=== PATIENT | male | born 1995 | race African-American/Black ===

== ENCOUNTER 2019-08-18 08:42 | Emergency (ER) | payer SELFPAY ==
[~2019-08-18] VITALS: Ht 170.2 cm; Wt 70.0 kg
[2019-08-18 12:52] LABS: BASOPHILS % 0.1 % (0.0-2.0); EOSINOPHILS % 0.1 % (0.0-5.0); HEMATOCRIT. 46.8 % (42.0-52.0); HEMOGLOBIN. 15.9 g/dL (14.0-18.0); LYMPHOCYTES % 8.7 % (20.0-50.0); MEAN CORPUSCULAR HEMOGLOBIN 27.9 pg (28.0-32.0); MEAN CORPUSCULAR VOLUME 82.1 fL (80.0-94.0); MEAN PLATELET VOLUME 7.2 fl (7.4-10.4); MONOCYTES % 7.8 % (2.0-8.0); NEUTROPHILS % 83.3 % (40.0-76.0); PLATELET 322 x1000/uL (130-400); RED CELL DISTRIBUTION WIDTH 13.1 % (11.6-14.6)
[2019-08-18 12:56] LABS: CHLORIDE 100 mEq/L (98-107)
[2019-08-18 13:00] LABS: ETHANOL BLOOD < 10 mg/dL
[2019-08-18] MEDS: OLANZAPINE 10MG TABLET PO SCH ×2 (15:06→17:00)
[2019-08-18 16:26] LABS: CLARITY URINE CLEAR (CLEAR); COLOR URINE YELLOW (YELLOW); KETONES URINE TRACE (NEGATIVE); LEUKOCYTE ESTERASE URINE NEGATIVE (NEGATIVE); NITRITE URINE NEGATIVE (NEGATIVE); OCCULT BLOOD URINE 1+ (NEGATIVE); PROTEIN URINE NEGATIVE (NEGATIVE); SPECIFIC GRAVITY URINE 1.022 (1.005-1.030)
[2019-08-18 20:27] LABS: CANNABINOID URINE SCREEN NEGATIVE (NEGATIVE); PHENCYCLIDINE URINE SCREEN PRESUMTIVE POSITIVE (NEGATIVE)
[2019-08-18 20:28] LABS: *AMPHETAMINES SCREEN URINE NEGATIVE (NEGATIVE); *BARBITURATES SCREEN URINE NEGATIVE (NEGATIVE); *BENZODIAZEPINES SCREEN URINE NEGATIVE (NEGATIVE); *COCAINE SCREEN URINE NEGATIVE (NEGATIVE); METHADONE URINE SCREEN NEGATIVE (NEGATIVE); OPIATES URINE SCREEN NEGATIVE (NEGATIVE)
[2019-08-19] MEDS: OLANZAPINE 10MG TABLET PO SCH (14:53)
[2019-08-19 18:00] VITALS: BP 115/72
== END 2019-08-19 19:30 | disposition home or self-care (01) ==
LOC: ER 08:42
DX: F29 Unspecified psychosis not due to a substance or known physiological condition (principal); R45.6 Violent behavior; Z73.6 Limitation of activities due to disability; J45.909 Unspecified asthma, uncomplicated; Z59.0 Homelessness
CPT/HCPCS: 36415; 80305; 80320; 81003; 99284; G0480

== ENCOUNTER 2023-06-19 17:11 | Emergency (ER) | payer MEDICAID ==
[~2023-06-19] VITALS: Ht 170.2 cm; Wt 59.0 kg
[2023-06-19 17:48] VITALS: O2SAT 99
[2023-06-19 20:12] LABS: CLARITY URINE CLEAR (CLEAR); COLOR URINE YELLOW (YELLOW); GLUCOSE URINE NEGATIVE (NEGATIVE); KETONES URINE 2+ (NEGATIVE); LEUKOCYTE ESTERASE URINE NEGATIVE (NEGATIVE); NITRITE URINE NEGATIVE (NEGATIVE); OCCULT BLOOD URINE NEGATIVE (NEGATIVE); PH URINE 6.5 (4.5-8.0); PROTEIN URINE NEGATIVE (NEGATIVE)
[2023-06-19 20:38] LABS: *AMPHETAMINES SCREEN URINE PRESUMTIVE POSITIVE (NEGATIVE); *BARBITURATES SCREEN URINE NEGATIVE (NEGATIVE); *BENZODIAZEPINES SCREEN URINE NEGATIVE (NEGATIVE); *COCAINE SCREEN URINE NEGATIVE (NEGATIVE); CANNABINOID URINE SCREEN PRESUMTIVE POSITIVE (NEGATIVE); ECSTASY MDMA SCREEN URINE NEGATIVE (NEGATIVE); OPIATES URINE SCREEN NEGATIVE (NEGATIVE); PHENCYCLIDINE URINE SCREEN NEGATIVE (NEGATIVE)
[2023-06-19 20:41] LABS: BASOPHILS % 0.5 % (0.0-2.0); EOSINOPHILS % 1.8 % (0.0-5.0); HEMOGLOBIN. 13.7 g/dL (14.0-18.0); LYMPHOCYTES % 30.5 % (20.0-50.0); MEAN CORPUSCULAR HEMOGLOBIN 28.3 pg (28.0-32.0); MEAN CORPUSCULAR HGB CONC 34.3 g/dL (31.0-37.0); MEAN CORPUSCULAR VOLUME 82.3 fL (80.0-94.0); MEAN PLATELET VOLUME 6.9 fl (7.4-10.4); MONOCYTES % 8.9 % (2.0-8.0); NEUTROPHILS % 58.3 % (40.0-76.0); PLATELET 275 x1000/uL (130-400); RED BLOOD CELL COUNT 4.85 mill/uL (4.7-6.1); RED CELL DISTRIBUTION WIDTH 13.3 % (11.6-14.6); WHITE BLOOD COUNT 6.8 x1000/uL (4.5-11.0)
[2023-06-19 20:49] LABS: CHLORIDE 105 mEq/L (98-107); INDEX HEMOLYSI 1 (1-3); INDEX ICTERIC 1 (1-4); INDEX LIPEMIC 1 (1-3); POTASSIUM 3.4 mEq/L (3.5-5.1); SODIUM 138 mEq/L (136-145)
[2023-06-19 20:56] LABS: ACETAMINOPHEN <2 ug/mL ug/mL (10-30); ALANINE AMINOTRANSFERASE 38 IU/L (13-61); ALBUMIN 3.9 g/dL (3.4-5.0); ASPARTATE AMINOTRANSFERASE 36 IU/L (15-37); BILIRUBIN TOTAL 1.1 mg/dL (0.1-1.0); CALCIUM 8.7 mg/dL (8.5-10.1); CARBON DIOXIDE 28 mEq/L (21-32); CREATININE 0.9 mg/dL (0.6-1.3); ETHANOL BLOOD < 10 mg/dL (<10); GLUCOSE 103 mg/dL (70-105); PROTEIN TOTAL 6.8 g/dL (6.0-8.3); UREA NITROGEN BLOOD 12 mg/dL (7-21)
[2023-06-20] MEDS ORDERED: POTASSIUM CHLORIDE 20MEQ TABLET SR PO ONE (00:15)
[2023-06-20] MEDS ORDERED: POTASSIUM CHLORIDE 20MEQ TABLET SR PO NR (13:30)
[2023-06-20] MEDS: OLANZAPINE 5MG TABLET ODT PO SCH ×2 (14:03→18:00)
[2023-06-21] MEDS: OLANZAPINE 5MG TABLET ODT PO SCH ×2 (09:58→18:33)
[2023-06-21 18:33] VITALS: BP 125/63; PULSE 88; RESP 16; TEMP 98.5
[2023-06-21] MEDS ORDERED: OLAN5TAB3 MT (19:14)
== END 2023-06-21 19:40 | disposition home or self-care (01) ==
LOC: ER 17:11
DX: R45.851 Suicidal ideations (principal); R07.89 Other chest pain; Z20.822 Contact with and (suspected) exposure to COVID-19
CPT/HCPCS: 80053; 80305; 81003; 80307; 80329; 80320; 85025; 36415; 71045; 93005; 99285; 87426; C9803; G0480

== ENCOUNTER 2023-06-26 09:43 | Emergency (ER) | payer MEDICAID ==
[~2023-06-26] VITALS: Ht 170.2 cm; Wt 64.0 kg
[~2023-06-26 09:43] MED LIST: OLAN5TAB3 MT
[2023-06-26 10:07] VITALS: BP 135/82; PULSE 102; RESP 18; TEMP 98.2; O2SAT 98
[2023-06-26] MEDS ORDERED: BACITRACIN ZINC OINT UDPKT TOP ONE (14:30)
[2023-06-26] MEDS ORDERED: OLANZAPINE 5MG TABLET PO SCH (15:00)
== END 2023-06-26 16:57 | disposition left against medical advice (07) ==
LOC: ER 10:28
DX: R44.0 Auditory hallucinations (principal)
CPT/HCPCS: 99281

== ENCOUNTER 2023-08-09 12:14 | Emergency (ER) | payer MEDICAID ==
[~2023-08-09] VITALS: Ht 172.7 cm; Wt 59.0 kg
[2023-08-09 12:19] VITALS: BP 117/75; PULSE 90; RESP 16; TEMP 98.2; O2SAT 98
[2023-08-09] MEDS ORDERED: SULF1TAB48 MT (14:12)
[2023-08-09] MEDS ORDERED: HIBIL TP (14:12)
[2023-08-09 14:38] LABS: BASOPHILS % 0.3 % (0.0-2.0); EOSINOPHILS % 1.1 % (0.0-5.0); HEMATOCRIT. 42.5 % (42.0-52.0); HEMOGLOBIN. 14.2 g/dL (14.0-18.0); LYMPHOCYTES % 9.3 % (20.0-50.0); MEAN CORPUSCULAR HEMOGLOBIN 28.6 pg (28.0-32.0); MEAN CORPUSCULAR HGB CONC 33.5 g/dL (31.0-37.0); MEAN CORPUSCULAR VOLUME 85.3 fL (80.0-94.0); MEAN PLATELET VOLUME 6.8 fl (7.4-10.4); MONOCYTES % 7.5 % (2.0-8.0); NEUTROPHILS % 81.8 % (40.0-76.0); PLATELET 337 x1000/uL (130-400); RED BLOOD CELL COUNT 4.98 mill/uL (4.7-6.1); RED CELL DISTRIBUTION WIDTH 12.9 % (11.6-14.6)
[2023-08-09 14:46] LABS: ALANINE AMINOTRANSFERASE 32 IU/L (10-49); ALBUMIN 4.3 g/dL (3.2-4.8); ASPARTATE AMINOTRANSFERASE 41 IU/L (<34); BILIRUBIN TOTAL 0.6 mg/dL (0.1-1.0); CALCIUM 9.6 mg/dL (8.7-10.4); CARBON DIOXIDE 29 mEq/L (21-32); CHLORIDE 104 mEq/L (98-107); GLUCOSE 97 mg/dL (70-105); POTASSIUM 3.8 mEq/L (3.5-5.1); PROTEIN TOTAL 7.1 g/dL (6.0-8.3); SODIUM 139 mEq/L (136-145); UREA NITROGEN BLOOD 17 mg/dL (9-23)
== END 2023-08-09 16:45 | disposition home or self-care (01) ==
LOC: ER 12:14
DX: L08.89 Other specified local infections of the skin and subcutaneous tissue (principal); J45.909 Unspecified asthma, uncomplicated
CPT/HCPCS: 36415; 80053; 85025; 99283

== ENCOUNTER 2023-08-24 05:26 | Emergency (ER) | payer MEDICAID ==
[~2023-08-24] VITALS: Ht 175.3 cm; Wt 79.0 kg
[~2023-08-24 05:26] MED LIST changes: +HIBIL TP; +SULF1TAB48 MT
[2023-08-24] MEDS ORDERED: DIPHENHYDRAMINE 50MG/ML VIAL IM STA (05:30)
[2023-08-24] MEDS ORDERED: HALOPERIDOL LACTATE 5MG/ML VIAL IM STA (05:30)
[2023-08-24] MEDS ORDERED: LORAZEPAM 2MG/ML CPJ IM STA (05:30)
[2023-08-24] MEDS ORDERED: LORAZEPAM 2MG/ML UD SYRINGE IM NR (05:45)
[2023-08-24 15:39] VITALS: BP 114/83; PULSE 69; RESP 18; TEMP 97.9
== END 2023-08-24 17:52 | disposition home or self-care (01) ==
LOC: ER 05:26
DX: R41.82 Altered mental status, unspecified (principal); Z98.890 Other specified postprocedural states
CPT/HCPCS: 96372; 99291; J1200; J1630; J2060; Z7610 ×3

== ENCOUNTER 2023-11-22 08:39 | Emergency (ER) | payer MEDICAID ==
[~2023-11-22] VITALS: Ht 172.7 cm; Wt 63.0 kg
[2023-11-22 08:42] VITALS: BP 120/79; PULSE 61; RESP 20; TEMP 98.1; O2SAT 99
[2023-11-22] MEDS ORDERED: DEXT30SU17 MT (09:45)
[2023-11-22] MEDS ORDERED: ALBU90AE INH (09:45)
[2023-11-22] MEDS ORDERED: P50 MT (09:45)
[2023-11-22] MEDS ORDERED: TOPUD MT (09:45)
== END 2023-11-22 09:53 | disposition home or self-care (01) ==
LOC: ER 08:39
DX: R05.9 Cough, unspecified (principal); R09.81 Nasal congestion; J45.909 Unspecified asthma, uncomplicated; Z79.899 Other long term (current) drug therapy
CPT/HCPCS: 99281; 99283

== ENCOUNTER 2024-01-25 09:44 | Emergency (ER) | payer MEDICAID ==
[~2024-01-25] VITALS: Ht 165.1 cm; Wt 59.0 kg
[~2024-01-25 09:44] MED LIST changes: +ALBU90AE INH; +DEXT30SU17 MT; +P50 MT; +TOPUD MT
[2024-01-25 10:04] VITALS: O2SAT 99
[2024-01-25 11:06] VITALS: BP 126/69; PULSE 75; RESP 18; TEMP 98.1
== END 2024-01-25 11:10 | disposition home or self-care (01) ==
LOC: ER 09:44
DX: Z04.6 Encounter for general psychiatric examination, requested by authority (principal)
CPT/HCPCS: 99281

== ENCOUNTER 2024-04-17 14:16 | Emergency (ER) | payer MEDICAID ==
[~2024-04-17] VITALS: Ht 172.7 cm; Wt 60.0 kg
[2024-04-17 14:48] VITALS: TEMP 98.5; O2SAT 99
[2024-04-17] MEDS: IBUPROFEN 600MG TABLET PO STA (16:40)
[2024-04-17] MEDS ORDERED: NAPR-681 PO (17:58)
[2024-04-17 18:23] VITALS: BP 112/77; PULSE 80; RESP 16
== END 2024-04-17 18:34 | disposition home or self-care (01) ==
LOC: ER 14:16
DX: S90.822A Blister (nonthermal), left foot, initial encounter (principal); M79.641 Pain in right hand; M25.572 Pain in left ankle and joints of left foot; M25.571 Pain in right ankle and joints of right foot; J45.909 Unspecified asthma, uncomplicated; X58.XXXA Exposure to other specified factors, initial encounter; Y93.89 Activity, other specified; Y92.89 Other specified places as the place of occurrence of the external cause; Y99.8 Other external cause status
CPT/HCPCS: 73130; 73610; 99284

== ENCOUNTER 2024-08-14 18:21 | Emergency (ER) | payer MEDICAID ==
[~2024-08-14] VITALS: Ht 170.2 cm; Wt 61.2 kg
[~2024-08-14 18:21] MED LIST changes: +NAPR-681 PO
[2024-08-14 18:32] VITALS: O2SAT 98
[2024-08-14 18:57] VITALS: BP 120/62; TEMP 98.3; O2SAT 97
[2024-08-15] MEDS ORDERED: NAPR-1486 MT (01:44)
[2024-08-15] MEDS ORDERED: P50 MT (01:44)
[2024-08-15] MEDS ORDERED: ALBU18HF2 IH (01:44)
[2024-08-15] MEDS ORDERED: AZIT250T12 MT (01:44)
[2024-08-15] MEDS: IPRATROPIUM BROMIDE (0.02%) 0.5MG/2.5ML NEB ONE (02:09)
[2024-08-15] MEDS: ALBUTEROL (0.083%) 2.5MG/3ML NEB ONE (02:09)
[2024-08-15 02:10] VITALS: PULSE 89; RESP 18
[2024-08-15] MEDS: IPRATROPIUM BROMIDE (0.02%) 0.5MG/2.5ML NEB HHN STA (02:10)
[2024-08-15] MEDS: ALBUTEROL (0.083%) 2.5MG/3ML NEB HHN STA (02:10)
== END 2024-08-15 02:58 | disposition home or self-care (01) ==
LOC: ER 18:21
DX: J20.9 Acute bronchitis, unspecified (principal); J45.909 Unspecified asthma, uncomplicated; Z79.899 Other long term (current) drug therapy; Z87.891 Personal history of nicotine dependence
CPT/HCPCS: 99283; 71045; 94640; Z7610 ×3